=== PATIENT | male | born 1940 | race Caucasian/White ===

== ENCOUNTER 2018-11-26 08:41 | Emergency (ER) | payer MEDICARE ==
[2018-11-26] MEDS ORDERED: SODIUM CHLORIDE 0.9% 1,000 ML IV STA (09:02)
--- NOTE | 2018-11-26 09:05 | ED ---
General Adult HPI - General Chief complaint: Weakness Stated complaint: weakness Time Seen by Provider: 11/26/18 08:50 Source: patient, family, RN notes reviewed Mode of arrival: ambulatory Limitations: no limitations - History of Present Illness Initial comments: Patient is a pleasant 78-year-old male presenting to the emergency department with family with generalized weakness. Symptoms have been occurring for over the past week or more. Patient feels somewhat weak all over. Patient feels fatigued. Patient is sleeping more than normal. Patient has occasional mild cough. Patient states his urine has appeared more dark recently. Patient is e ating and drinking. No isolated area of weakness. Patient is able to take care of himself and get around the house without difficulty. Patient states occasionally at night he does feel somewhat confused. Wakes up in the middle the night. Patient states this is well he is looking at the clock. Patient states this has occurred for weeks. - Related Data Home Medications Medication Instructions Recorded Confirmed Aspirin EC [Ecotrin Low Dose] 81 mg PO DAILY 11/26/18 11/26/18 Azelastine HCl [Optivar 0.05% 1 drop BOTH EYES BID 11/26/18 11/26/18 [facility]] Cholecalciferol [Vitamin D3 (25 1,000 unit PO DAILY 11/26/18 11/26/18 Mcg = 1000 Iu)] Cyanocobalamin (Vitamin B-12) 1,000 mcg PO DAILY 11/26/18 11/26/18 [Vitamin B-12] Lisinopril [Zestril] 10 mg PO DAILY 11/26/18 11/26/18 Loratadine [Claritin] 10 mg PO DAILY 11/26/18 11/26/18 Ranitidine HCl [Zantac] 150 mg PO BID 11/26/18 11/26/18 Travoprost [Travatan Z 0.004%] 1 drop BOTH EYES HS 11/26/18 11/26/18 Allergies Allergy/AdvReac Type Severity Reaction Status Date / Time No Known Allergies Allergy Verified 11/26/18 09:24 Review of Systems ROS Statement: Those systems with pertinent positive or pertinent negative responses have been documented in the HPI. ROS Other: All systems not noted in ROS Statement are negative. Constitutional: Denies: fever Eyes: Denies: eye pain ENT: Denies: ear pain Respiratory: Reports: cough Cardiovascular: Denies: chest pain Endocrine: Reports: fatigue Gastrointestinal: Denies: abdominal pain Genitourinary: Denies: dysuria Musculoskeletal: Denies: back pain Skin: Denies: rash Neurological: Reports: as per HPI. Denies: headache Past Medical History Past Medical History: Hyperlipidemia, Hypertension History of Any Multi-Drug Resistant Organisms: None Reported Past Surgical History: Appendectomy, Cholecystectomy Past Psychological History: No Psychological Hx Reported Smoking Status: Former smoker Past Alcohol Use History: None Reported Past Drug Use History: None Reported General Exam Limitations: no limitations General appearance: alert, in no apparent distress Head exam: Present: atraumatic, normocephalic Eye exam: Present: normal appearance, PERRL, EOMI. Absent: nystagmus ENT exam: Present: normal oropharynx Neck exam: Present: normal inspection Respiratory exam: Present: normal lung sounds bilaterally Cardiovascular Exam: Present: regular rate, normal rhythm GI/Abdominal exam: Present: soft. Absent: tenderness Extremities exam: Present: normal inspection. Absent: pedal edema, calf tenderness Neurological exam: Present: alert, oriented X3, CN II-XII intact. Absent: motor sensory deficit Expanded Patient oriented to: Present: person, place, time Speech: Present: fluid speech Cranial nerves: EOM's Intact: Normal, Facial Sensation: Normal Sensory exam: Upper Extremity Light Touch: Normal, Lower Extremity Light Touch: Normal Motor strength exam: RUE: 5, LUE: 5, RLE: 5, LLE: 5 Eye Response: (4) open spontaneously Motor Response: (6) obeys commands Verbal Response: (5) oriented Psychiatric exam: Present: normal affect, normal mood Skin exam: Present: normal color Course Vital Signs 11/26/18 11/26/18 11/26/18 08:42 09:38 10:35 Temperature 98.9 F Pulse Rate 99 84 80 Respiratory 18 16 16 Rate Blood Pressure 123/77 101/69 111/72 O2 Sat by Pulse 96 98 98 Oximetry 11/26/18 11:25 Temperature Pulse Rate 88 Respiratory 16 Rate Blood Pressure 110/73 O2 Sat by Pulse 98 Oximetry EKG Findings - EKG Comments: EKG Findings:: Normal sinus rhythm 82. IN 188. QRS 126. QT 410. QTc 479. Normal axis. Right bundle branch block. Nonspecific T waves Medical Decision Making - Medical Decision Making Patient reevaluated and resting comfortably in bed. Patient is saying to feel better after fluids. Family does have some concerns regarding fatigue however agrees that he looks better. Patient was able to get up and and really well through the department without complaints. Patient is requesting discharge home and family is comfortable with this. They were offered admission for further evaluation however would like to go home this time. Case was discussed with Dr. Robertson who stated she would keep patient for observation if family wanted however also did feel comfortable with discharge of patient was doing well. - Lab Data Result diagrams: 11/26/18 09:07 11/26/18 09:07 Lab Results 11/26/18 11/26/18 11/26/18 Range/Units 09:07 09:07 09:07 WBC 16.4 H (3.8-10.6) k/uL RBC 5.23 (4.30-5.90) m/uL Hgb 14.1 (13.0-17.5) gm/dL Hct 43.0 (39.0-53.0) % MCV 82.3 (80.0-100.0) fL MCH 26.9 (25.0-35.0) pg MCHC 32.7 (31.0-37.0) g/dL RDW 13.1 (11.5-15.5) % Plt Count 511 H (150-450) k/uL Neutrophils % 84 % Lymphocytes % 5 % Monocytes % 8 % Eosinophils % 2 % Basophils % 0 % Neutrophils # 13.8 H (1.3-7.7) k/uL Lymphocytes # 0.8 L (1.0-4.8) k/uL Monocytes # 1.3 H (0-1.0) k/uL Eosinophils # 0.3 (0-0.7) k/uL Basophils # 0.1 (0-0.2) k/uL PT 10.6 (9.0-12.0) sec INR 1.0 (<1.2) APTT 25.0 (22.0-30.0) sec Sodium 132 L (137-145) mmol/L Potassium 4.8 (3.5-5.1) mmol/L Chloride 99 (98-107) mmol/L Carbon Dioxide 21 L (22-30) mmol/L Anion Gap 12 mmol/L BUN 19 (9-20) mg/dL Creatinine 0.89 (0.66-1.25) mg/dL Est GFR (CKD-EPI)AfAm >90 (>60 ml/min/1.73 sqM) Est GFR (CKD-EPI)NonAf 82 (>60 ml/min/1.73 sqM) Glucose 120 H (74-99) mg/dL Calcium 8.8 (8.4-10.2) mg/dL Magnesium 2.2 (1.6-2.3) mg/dL Total Bilirubin 2.2 H (0.2-1.3) mg/dL AST 37 (17-59) U/L ALT 29 (21-72) U/L Alkaline Phosphatase 176 H (38-126) U/L Troponin I (0.000-0.034) ng/mL Total Protein 6.4 (6.3-8.2) g/dL Albumin 3.2 L (3.5-5.0) g/dL TSH 0.784 (0.465-4.680) mIU/L Urine Color Urine Appearance (Clear) Urine pH (5.0-8.0) Ur Specific [place] (1.001-1.035) Urine Protein (Negative) Urine Glucose (UA) (Negative) Urine Ketones (Negative) Urine Blood (Negative) Urine Nitrite (Negative) Urine Bilirubin (Negative) Urine Urobilinogen (<2.0) mg/dL Ur Leukocyte Esterase (Negative) Urine RBC (0-5) /hpf Urine WBC (0-5) /hpf Ur Squamous Epith Cells (0-4) /hpf Amorphous Sediment (None) /hpf Urine Mucus (None) /hpf 11/26/18 11/26/18 Range/Units 09:07 10:28 WBC (3.8-10.6) k/uL RBC (4.30-5.90) m/uL Hgb (13.0-17.5) gm/dL Hct (39.0-53.0) % MCV (80.0-100.0) fL MCH (25.0-35.0) pg MCHC (31.0-37.0) g/dL RDW (11.5-15.5) % Plt Count (150-450) k/uL Neutrophils % % Lymphocytes % % Monocytes % % Eosinophils % % Basophils % % Neutrophils # (1.3-7.7) k/uL Lymphocytes # (1.0-4.8) k/uL Monocytes # (0-1.0) k/uL Eosinophils # (0-0.7) k/uL Basophils # (0-0.2) k/uL PT (9.0-12.0) sec INR (<1.2) APTT (22.0-30.0) sec Sodium (137-145) mmol/L Potassium (3.5-5.1) mmol/L Chloride (98-107) mmol/L Carbon Dioxide (22-30) mmol/L Anion Gap mmol/L BUN (9-20) mg/dL Creatinine (0.66-1.25) mg/dL Est GFR (CKD-EPI)AfAm (>60 ml/min/1.73 sqM) Est GFR (CKD-EPI)NonAf (>60 ml/min/1.73 sqM) Glucose (74-99) mg/dL Calcium (8.4-10.2) mg/dL Magnesium (1.6-2.3) mg/dL Total Bilirubin (0.2-1.3) mg/dL AST (17-59) U/L ALT (21-72) U/L Alkaline Phosphatase (38-126) U/L Troponin I <0.012 (0.000-0.034) ng/mL Total Protein (6.3-8.2) g/dL Albumin (3.5-5.0) g/dL TSH (0.465-4.680) mIU/L Urine Color [place] Urine Appearance Clear (Clear) Urine pH 6.0 (5.0-8.0) Ur Specific [place] 1.020 (1.001-1.035) Urine Protein 1+ H (Negative) Urine Glucose (UA) Negative (Negative) Urine Ketones 1+ H (Negative) Urine Blood Trace H (Negative) Urine Nitrite Negative (Negative) Urine Bilirubin 1+ H (Negative) Urine Urobilinogen >12.0 (<2.0) mg/dL Ur Leukocyte Esterase Negative (Negative) Urine RBC 3 (0-5) /hpf Urine WBC 4 (0-5) /hpf Ur Squamous Epith Cells <1 (0-4) /hpf Amorphous Sediment Occasional H (None) /hpf Urine Mucus Moderate H (None) /hpf - Radiology Data Radiology results: report reviewed (Computed tomography scan the brain reveals no acute process. Atrophy.), image reviewed (Chest x-ray reveals no acute process) Disposition Clinical Impression: Fatigue Disposition: HOME SELF-CARE Condition: Stable Instructions (If sedation given, give patient instructions): Fatigue (ED) Additional Instructions: Please do follow-up with primary care physician in the next day or 2 for recheck. Return for weakness, confusion, speech problems, worsening symptoms, fevers, or other concerns. Is patient prescribed a controlled substance at d/c from ED?: No Referrals: Cassia Baptiste MD [Primary Care Provider] - 1-2 days Time of Disposition: 13:06
[2018-11-26 09:37] LABS: ALT 29 U/L (21-72); AST 37 U/L (17-59); African American GFR (CKD) >90 (>60 ml/min/1.73 sqM); Albumin 3.2 g/dL (3.5-5.0); Alkaline Phosphatase 176 U/L (38-126); Anion Gap 12 mmol/L; Blood Urea Nitrogen 19 mg/dL (9-20); Calcium 8.8 mg/dL (8.4-10.2); Carbon Dioxide 21 mmol/L (22-30); Chloride 99 mmol/L (98-107); Glucose 120 mg/dL (74-99); Magnesium 2.2 mg/dL (1.6-2.3); Potassium 4.8 mmol/L (3.5-5.1); Sodium 132 mmol/L (137-145); Total Bilirubin 2.2 mg/dL (0.2-1.3); Total Protein 6.4 g/dL (6.3-8.2)
[2018-11-26 09:39] VITALS: RESP 16
[2018-11-26 09:40] LABS: Prothrombin Time 10.6 sec (9.0-12.0)
[2018-11-26 09:47] LABS: Basophils # (A) 0.1 k/uL (0-0.2); Basophils % (A) 0 %; Eosinophils # (A) 0.3 k/uL (0-0.7); Eosinophils % (A) 2 %; HGB 14.1 gm/dL (13.0-17.5); Lymphocytes # (A) 0.8 k/uL (1.0-4.8); Lymphocytes % (A) 5 %; MCH 26.9 pg (25.0-35.0); MCHC 32.7 g/dL (31.0-37.0); MCV 82.3 fL (80.0-100.0); Monocytes # (A) 1.3 k/uL (0-1.0); Monocytes % (A) 8 %; Neutrophils # (A) 13.8 k/uL (1.3-7.7); Neutrophils % (A) 84 %; Platelet Count 511 k/uL (150-450); RBC 5.23 m/uL (4.30-5.90); RDW 13.1 % (11.5-15.5); WBC 16.4 k/uL (3.8-10.6)
--- NOTE | 2018-11-26 10:41 | XR ---
EXAMINATION TYPE: XR chest 2V DATE OF EXAM: 11/26/2018 COMPARISON: NONE HISTORY: Weakness TECHNIQUE: Frontal and lateral views of the chest are obtained. FINDINGS: There are overlying cardiac leads. Aorta is dense. There is no focal air space opacity, ple ural effusion, or pneumothorax seen. The cardiac silhouette size is within normal limits. The osse ous structures are intact. IMPRESSION: No acute cardiopulmonary process.
--- NOTE | 2018-11-26 10:48 | CT ---
EXAMINATION TYPE: CT brain wo con DATE OF EXAM: 11/26/2018 HISTORY: Weakness in left leg. CT DLP: 1048.6 mGycm. Automated Exposure Control for Dose Reduction was Utilized. TECHNIQUE: CT scan of the head is performed without contrast. COMPARISON: None. FINDINGS: There is no acute intracranial hemorrhage or midline shift identified. There is diffuse v entricular and sulcal prominence consistent with diffuse age-related cerebral atrophy. There is low- attenuation in the periventricular white matter consistent with chronic small vessel ischemic change. The globes are intact and the visualized sinuses are clear. IMPRESSION: No acute intracranial hemorrhage or midline shift. There is moderate diffuse age-relate d cerebral atrophy and chronic small vessel ischemic change noted.
[2018-11-26 10:53] LABS: Amorphous Sediment,Urine Occasional /hpf; Appearance,Urine Clear (Clear); Bilirubin,Urine 1+ (Negative); Blood,Urine Trace (Negative); Color,Urine Orange; Glucose,Urine (UA) Negative (Negative); Ketones,Urine 1+ (Negative); Leukocyte Esterase,Urine Negative (Negative); Mucus,Urine Moderate /hpf; Nitrite,Urine Negative (Negative); Protein,Urine 1+ (Negative); RBC,Urine 3 /hpf (0-5); Squamous Epithelial Cell,Urine <1 /hpf (0-4); Urobilinogen,Urine >12.0 mg/dL (<2.0); WBC,Urine 4 /hpf (0-5)
[2018-11-26 11:26] VITALS: PULSE 88
[2018-11-26 13:10] VITALS: BP 120/78; TEMP 98.3
== END 2018-11-26 13:20 | disposition home or self-care (01) ==
LOC: EC 08:41
DX: R53.83 Other fatigue (principal); R53.1 Weakness; I10 Essential (primary) hypertension; Z87.891 Personal history of nicotine dependence; Z79.82 Long term (current) use of aspirin; Z79.899 Other long term (current) drug therapy
CPT/HCPCS: 36415; 70450; 71046; 80053; 81001; 83735; 84443; 84484; 85025; 85610; 85730; 93005; 96360; 96361; 99285

== ENCOUNTER → 2018-12-06 | Outpatient (CLI) | payer MEDICARE ==
[2018-12-06 19:24] LABS: African American GFR (CKD) 98.5 (60.0-200.0)
== END | disposition home or self-care (01) ==
LOC: LABWHC1 11:53
PROVIDERS: ATTEND Family Medicine
DX: R05 Cough (principal)
CPT/HCPCS: 36415; 82565; 84520

== ENCOUNTER → 2018-12-13 | Outpatient (CLI) | payer MEDICARE ==
--- NOTE | 2018-12-15 11:39 | CT ---
EXAMINATION TYPE: CT chest w con DATE OF EXAM: 12/13/2018 COMPARISON: Chest x-ray dated 11/26/2018 HISTORY: cough, congestion, fatigue, weight loss CT DLP: 550.7 mGycm. Automated Exposure Control for Dose Reduction was Utilized. TECHNIQUE: CT scan of the thorax is performed following with IV Contrast, patient injected with 100 mL of Isovue 300. FINDINGS: LUNGS: There is a solid right lower lobe 5 mm pulmonary nodule on series 4 image 33. There is a 3 mm groundglass nodule in the right middle lobe on image 44 and 3 mm solid pulmonary nodule also on image 44 within the right middle lobe. There is a 4 mm solid left lower lobe pulmonary nodule on series 4 image 35. There is minimal basilar fibrosis, subsegmental atelectasis, and very mild left basilar per ibronchial cuffing. Intrafissural lymph node is seen on image 39 measuring 4 mm an additional solid 3 mm pulmonary nodule seen within the lingula on image 36. In the anterior right upper lobe adjacent t o pulmonary vasculature there is a 5 mm pulmonary nodule that is solid in nature. 2 mm punctate subpl eural pulmonary nodule along the peripheral right upper lobe is present on image 29. Solid right basi lar millimeter pulmonary nodule is present on image 47. No focal consolidation, pleural effusion or p neumothorax. There is mild left hemidiaphragm elevation and left basilar atelectasis seen on coronal images. MEDIASTINUM: There are no greater than 1 cm hilar or mediastinal lymph nodes. No pericardial effusi on is seen. Severe three-vessel coronary artery calcifications are seen. Ascending thoracic aorta is mildly aneurysmal measuring 4.1 cm. Right and left main pulmonary arteries are enlarged and can be s een in all major arterial hypertension. OTHER: Moderate multilevel degenerative disc disease of the thoracic spine is seen. There is a 1 cm l eft renal cyst. Renal sinus cysts are also seen on the left. IMPRESSION: 1. Multiple subcentimeter pulmonary nodules measuring up to 5 mm seen bilaterally. These are indeterm inant at this time without any prior comparison for assessment of growth or stability and could repre sent metastasis or benign nodules. Follow-up would be recommended in 6-12 months given the concern fo r underlying neoplasm. 2. Mild aneurysmal dilatation of the ascending thoracic aorta measuring up to 4.1 cm. 3. Enlarged main pulmonary arteries that can be seen in pulmonary arterial hypertension. 4. Severe three-vessel coronary artery calcifications, marker of coronary artery disease.
== END | disposition home or self-care (01) ==
LOC: RADCTMAIN 16:30
PROVIDERS: ATTEND Family Medicine
DX: I71.2 Thoracic aortic aneurysm, without rupture (principal); I25.10 Atherosclerotic heart disease of native coronary artery without angina pectoris; R91.8 Other nonspecific abnormal finding of lung field; I28.8 Other diseases of pulmonary vessels; R05 Cough; R53.83 Other fatigue; D72.829 Elevated white blood cell count, unspecified; R09.89 Other specified symptoms and signs involving the circulatory and respiratory systems
CPT/HCPCS: 71260; Q9967

== ENCOUNTER → 2019-01-24 | Outpatient (CLI) | payer MEDICARE ==
[2019-01-24 13:27] LABS: African American GFR (CKD) >90 (>60 ml/min/1.73 sqM); Blood Urea Nitrogen 16 mg/dL (9-20)
--- NOTE | 2019-01-24 15:01 | CT ---
EXAMINATION TYPE: CT abdomen pelvis w con DATE OF EXAM: 01/24/2019 COMPARISON: None HISTORY: abnormal weight loss CT DLP: 1632.1 mGycm Automated exposure control for dose reduction was used. TECHNIQUE: Helical acquisition of images was performed from the lung bases through the pelvis. CONTRAST: Performed with Oral Contrast and with IV Contrast, patient injected with 100 mL of Isovue 300. FINDINGS: LUNG BASES: Strand-like bibasilar atelectasis and some linear pleural parenchymal scarring seen at th e lung bases. Probable intrafissural lymph node on the left in 3 mm nodules adjacent to one another a t the right lung base on series 4 image 4. Other nodules in the right middle lobe measuring approxima tely 4 mm each. Mild coronary artery calcifications are also evident. LIVER/GB: Hepatic parenchyma is diffusely hypoattenuated in comparison to that of the spleen, most co mmonly seen in hepatic steatosis. This finding limits evaluation for hepatic masses. No gross evidenc e of hepatic mass is seen. No intrahepatic biliary ductal dilatation. Gallbladder surgically absent. PANCREAS: There is pancreatic parenchymal atrophy. No discrete ductal dilatation. Pancreas enhances h omogeneously. SPLEEN: No significant abnormality is seen. ADRENALS: No significant abnormality is seen. KIDNEYS: There is a 1.0 cm posterior cortical left renal cyst. There are left renal sinus cysts seen on the delayed images. No suspicious renal mass. FREE AIR: No free air is visualized REPRODUCTIVE ORGANS: Resting clinic heterogenous and mildly enlarged measuring 5.1 cm in transverse d imension. URINARY BLADDER: No significant abnormality is seen. ADENOPATHY: No greater than 1 cm short axis lymph node in the abdomen or pelvis. OSSEOUS STRUCTURES: Moderate multilevel degenerative changes of the spine. Grade 1 anterolisthesis o f L4 on L5 is likely secondary to hypertrophic facet change. BOWEL: Multiple colonic diverticula without pericolic fat stranding. There is colonic spasm versus e karlie annular neoplasm or prominent haustra of the ascending colon marked on series 3 image 39 and 38 and coronal image 44. OTHER: Extensive atheromatous changes seen of the abdominal aorta with distal mild aneurysmal dilatat ion measuring 2.9 x 3.2 cm extending into the left common iliac vein that measures 1.9 cm. IMPRESSION: 1. NO CT CORRELATE FOR THE PATIENT'S STATED WEIGHT LOSS. EVALUATION OF THE BOWEL IS SOMEWHAT LIMITED GIVEN CONTRAST DOES NOT EXTEND TO THE LARGE BOWEL AND THERE IS A MODERATE DEGREE COLONIC FECAL STASIS . COLONOSCOPY COULD BE CONSIDERED THERE IS AN AREA OF LUMINAL NARROWING VERSUS SMALL ANNULAR MASS OF THE ASCENDING COLON. 2. DESCENDING AORTIC ANEURYSM MEASURING UP TO 3.2 CM, HIGHLY CALCIFIED. 3. HEPATIC STEATOSIS. 4. NONSPECIFIC PULMONARY NODULES ARE SUBCENTIMETER AT THE LUNG BASES SEEN ON THE CT OF 12/05/2018. CONSIDERATION COULD BE GIVEN TO 12 MONTH FOLLOW-UP.
== END | disposition home or self-care (01) ==
LOC: RADCTMAIN 12:07
PROVIDERS: ATTEND Internal Medicine Critical Care Medicine
DX: K76.0 Fatty (change of) liver, not elsewhere classified (principal); K59.8 Other specified functional intestinal disorders; I70.0 Atherosclerosis of aorta; I71.9 Aortic aneurysm of unspecified site, without rupture; R91.8 Other nonspecific abnormal finding of lung field
CPT/HCPCS: 82565; 84520; 74177; 36415; Q9967

== ENCOUNTER → 2019-02-14 | Outpatient (CLI) | payer MEDICARE ==
--- NOTE | 2019-02-14 13:56 | FL ---
EXAMINATION TYPE: FL barium swallow w video DATE OF EXAM: 02/14/2019 COMPARISON: NONE HISTORY: Choking and coughing TECHNIQUE: Fluoroscopy. FINDINGS: Fluoroscopic guidance was provided for the procedure performed in conjunction with the [facility] pathology department. Please see complete report forthcoming from the Speech Pathology departmen t. Various consistencies from thin liquid to solids were administered. Fluoroscopy time 3 minutes 18 seconds. Number of images: 0. There is a report of a noninversion of the epiglottis. The epiglottis appeared to improve her normall y under most circumstances. There was some intermittent partial inversion during swallowing. No aspiration or penetration was evident. There is moderate pooling within the vallecula. This was through multiple consistencies. This improve d with chin tuck method. There was normal propulsion of the bolus. IMPRESSION: 1. Intermittent incomplete inversion of the epiglottis during the exam. 2. Moderately prominent vallecular pooling present through multiple consistencies.
== END | disposition home or self-care (01) ==
LOC: RADFLMAIN 10:21
PROVIDERS: ATTEND Otolaryngology
DX: K22.8 Other specified diseases of esophagus (principal)
CPT/HCPCS: 74230

== ENCOUNTER → 2019-02-26 | Outpatient (CLI) | payer MEDICARE ==
--- NOTE | 2019-02-26 22:43 | MR ---
EXAMINATION TYPE: MR brain wo/w con DATE OF EXAM: 02/26/2019 COMPARISON: CT brain November 26, 2018 HISTORY: reduced mobility, Parkinson's tremor. TECHNIQUE: Multiplanar, multisequence images of the brain and brainstem is performed without and with IV contras t, utilizing 9.5 mL intravenous Gadavist . FINDINGS: Diffusion weighted images demonstrate no evidence of a recent infarct or other diffusion ab normality. There is no worrisome extra-axial fluid collection. There is diffuse ventricular and sulc al prominence. There are scattered foci of T2 hyperintensity seen throughout the white matter bilater ally most prominent periventricular levels. Midline structures demonstrate normal morphology. The craniocervical junction appears within normal limits. Post contrast images demonstrate no abnormal enhancement. The dural venous sinuses appear pa tent. Mild mucosal thickening involving ethmoid sinuses bilaterally and right frontal sinus. And glob es are intact bilaterally. IMPRESSION: There is mild to moderate diffuse cerebral atrophy and moderate chronic small vessel isch emic changes appreciated.
== END | disposition home or self-care (01) ==
LOC: RADMRIMAIN 06:49
PROVIDERS: ATTEND Otolaryngology
DX: Q38.8 Other congenital malformations of pharynx (principal); G31.9 Degenerative disease of nervous system, unspecified; I67.82 Cerebral ischemia; Z74.09 Other reduced mobility
CPT/HCPCS: 70553; A9585

== ENCOUNTER → 2019-04-11 | Outpatient (CLI) | payer MEDICARE ==
[2019-04-11 16:38] LABS: Protein, Total 6.4 g/dL (6.2-8.2)
[2019-04-11 16:49] LABS: C Reactive Protein <0.4 mg/dL (0.0-0.8)
[2019-04-11 16:59] LABS: Creatine Kinase 73 U/L (35-257)
[2019-04-11 19:05] LABS: Hemoglobin A1C 5.9 % (4.0-6.0)
[2019-04-14 14:14] LABS: Albumin 3.62 g/dL (3.80-4.90); Gamma Globulin 0.81 g/dL (0.70-1.50)
== END | disposition home or self-care (01) ==
LOC: LABWHC1 07:32
PROVIDERS: ATTEND Psychiatry & Neurology Neurology
DX: G62.9 Polyneuropathy, unspecified (principal); R26.89 Other abnormalities of gait and mobility
CPT/HCPCS: 36415; 82550; 82607; 82747; 83036; 84165; 84207; 85652; 86038; 86140; 86235; 86618

== ENCOUNTER → 2019-06-19 | Outpatient (CLI) | payer MEDICARE ==
--- NOTE | 2019-06-19 11:57 | CT ---
EXAMINATION TYPE: CT chest w con DATE OF EXAM: 06/19/2019 COMPARISON: 12/05/2018 HISTORY: 79-year-old male follow-up Pulmonary nodule TECHNIQUE: Contiguous axial scanning of the chest after the administration of 100 mL of Isovue 300. Coronal/sagittal reconstructions performed. CT DLP: 461.6mGycm. Automatic exposure control utilized for a dose reduction. FINDINGS: Heart normal size without pericardial effusion. Aortic valvular calcifications are present along with three-vessel coronary artery calcifications. Ectatic ascending aorta at 3.9 cm, previously measuring 4.0 cm. Mild atherosclerotic arch calcificati ons with conventional arch vessel branching anatomy. Redemonstrated large caliber to the main right and left pulmonary arteries at 3.2 cm each suggesting underlying pulmonary artery hypertension. No thoracic lymphadenopathy by CT size criteria. Mild emphysematous changes. 5 mm right lower lobe pulmonary nodule, axial image 35, unchanged. Stable 4 mm right upper lobe pulmonary nodule, axial image 18. A few scattered 4 mm and smaller subpleural pulmonary nodules right upper lobe, unchanged. 4 mm anterior left midlung pulmonary nodule, axial image 32 is unchanged. Stable 5 mm calcified granuloma anterior right midlung, axial image 29. 4 mm anterior right midlung pulmonary nodule, axial image 39 is new from prior exam. Strandy atelectasis and scarring at the left base redemonstrated. Visualized upper abdomen shows postcholecystectomy change and stable 1.2 cm cortical cyst posterior l eft kidney. Bones: Degenerative changes at the shoulders. Moderate degenerative disc disease and endplate spondyl osis throughout the thoracic spine. IMPRESSION: 1. COPD with mild emphysema. Pulmonary arterial hypertension. CAD. 2. A new 4 mm anterior right midlung pulmonary nodule, axial image 39. Continued six-month follow-up is recommended. 3. Otherwise, the other scattered 5 mm and smaller pulmonary nodules are unchanged for 6 months. Thes e can be reassessed at the follow-up to ensure more long-term stability.
== END | disposition home or self-care (01) ==
LOC: RADCTMAIN 09:47
PROVIDERS: ATTEND Internal Medicine Critical Care Medicine
DX: J43.9 Emphysema, unspecified (principal); I27.21 Secondary pulmonary arterial hypertension; I25.10 Atherosclerotic heart disease of native coronary artery without angina pectoris; R91.8 Other nonspecific abnormal finding of lung field
CPT/HCPCS: 82565; 84520; 71260; 36415; Q9967

== ENCOUNTER 2019-10-20 14:31 | Emergency (ER) | payer MEDICARE ==
--- NOTE | 2019-10-20 16:21 | XR ---
EXAMINATION TYPE: XR shoulder complete LT DATE OF EXAM: 10/20/2019 CLINICAL HISTORY: pain COMPARISON: NONE TECHNIQUE: Three views of the left shoulder are obtained. FINDINGS: There is no acute fracture/dislocation evident. The acromioclavicular and glenohumeral robert int spaces appear severely narrowed. Glenohumeral and AC joint arthropathy. Severe narrowing subacro mial joint space may reflect chronic rotator cuff tear. The visualized ribs are intact and unremarkab le. IMPRESSION: 1. There is no acute fracture or dislocation. ICD 10 NO FRACTURE, INITIAL EVALUATION
--- NOTE | 2019-10-20 16:38 | ED ---
General Adult HPI - General Chief complaint: Skin/Abscess/Foreign Body Stated complaint: lump on shoulder Time Seen by Provider: 10/20/19 14:35 Source: patient Mode of arrival: ambulatory Limitations: physical limitation - History of Present Illness Initial comments: The patient is an 79-year-old male with past history of hyperlipidemia and hypertension who presents to emergency room with reported nodule over his left before meals joint. Patient states that he has a history of rotator cuff injury. He had previously reprepared approximately 25 years ago. States that he reinjured it several years ago however had a to forego surgery a second time. States that he has good range of motion in the shoulder however over the past couple of days he has been doing a lot of physical activity outside. States chopping wood. The other day he was interesting in the bathroom when he noted a large nodule over the distal edge of his left clavicle. States that it is mildly tender to touch. Appears it is enlarging in size. No surrounding redness. Denies any weakness in the extremity or any loss of range of motion. Denies any fevers or chills. No additional palpable masses. There are no other alleviating, precipitating or modifying factors - Related Data Home Medications Medication Instructions Recorded Confirmed Aspirin EC [Ecotrin Low Dose] 81 mg PO DAILY 11/26/18 11/26/18 Azelastine HCl [Optivar 0.05% 1 drop BOTH EYES BID 11/26/18 11/26/18 Ophth Soln] Cholecalciferol [Vitamin D3 (25 1,000 unit PO DAILY 11/26/18 11/26/18 Mcg = 1000 Iu)] Cyanocobalamin (Vitamin B-12) 1,000 mcg PO DAILY 11/26/18 11/26/18 [Vitamin B-12] Lisinopril [Zestril] 10 mg PO DAILY 11/26/18 11/26/18 Loratadine [Claritin] 10 mg PO DAILY 11/26/18 11/26/18 Ranitidine HCl [Zantac] 150 mg PO BID 11/26/18 11/26/18 Travoprost [Travatan Z 0.004%] 1 drop BOTH EYES HS 11/26/18 11/26/18 Allergies Allergy/AdvReac Type Severity Reaction Status Date / Time No Known Allergies Allergy Verified 10/20/19 14:38 Review of Systems ROS Statement: Those systems with pertinent positive or pertinent negative responses have been documented in the HPI. ROS Other: All systems not noted in ROS Statement are negative. Past Medical History Past Medical History: Hyperlipidemia, Hypertension History of Any Multi-Drug Resistant Organisms: None Reported Past Surgical History: Appendectomy, Cholecystectomy Past Psychological History: No Psychological Hx Reported Smoking Status: Former smoker Past Alcohol Use History: None Reported Past Drug Use History: None Reported General Exam Limitations: physical limitation General appearance: alert, in no apparent distress Neck exam: Present: normal inspection. Absent: tenderness, meningismus, lymphadenopathy Respiratory exam: Present: normal lung sounds bilaterally, other (palpable soft tissue nodule over the left AC joint. Nodule is mobile. No overlying ecchymosis. Nodule is minimally tender to palpation. ). Absent: respiratory distress, wheezes, rales, rhonchi, stridor Cardiovascular Exam: Present: regular rate, normal rhythm, normal heart sounds. Absent: systolic murmur, diastolic murmur, rubs, gallop, clicks Extremities exam: Present: normal inspection, full ROM, normal capillary refill. Absent: tenderness, pedal edema, joint swelling, calf tenderness Course Vital Signs 10/20/19 10/20/19 14:34 16:45 Temperature 98.0 F 97.9 F Pulse Rate 65 59 L Respiratory 20 17 Rate Blood Pressure 147/75 128/89 O2 Sat by Pulse 99 99 Oximetry Medical Decision Making - Medical Decision Making Upon arrival the patient is placed in room 20. A thorough history and physical exam was performed. The patient was sent for an x-ray of his left shoulder which does demonstrate no acute fracture dislocation. Before meals and glenohumeral joint spaces severely narrowed. Glenohumeral and before meals joint arthropathy. Severe narrowing subacromial joint space may reflect chronic rotator cuff tear. I did do a bedside ultrasound of the patient's soft tissue mass which has demonstrated loculations. I discussed the diagnosis, differential and treatment options. I did recommend that the patient be discharged home with follow-up with surgery for possible biopsy versus surgical excision. There does not demonstrate any overlying signs of cellulitis the patient has no additional soft tissue masses. The patient has any new or worsening symptoms he should return to the emergency room. He was given follow- up information for Dr. Rosales's office. Patient understood this and is discha rged home in stable condition Disposition Clinical Impression: Soft tissue mass, AC joint arthropathy Disposition: HOME SELF-CARE Condition: Stable Instructions (If sedation given, give patient instructions): Soft Tissue Mass (ED) Additional Instructions: Please follow-up with Dr. Solo in regards to your soft tissue tumor. He may recommend biopsy or removal. Return to the emergency room for any new or worsening symptoms Is patient prescribed a controlled substance at d/c from ED?: No Referrals: Ivan Hilliard [Primary Care Provider] - 1-2 days Oniel Solo MD [STAFF PHYSICIAN] - 1-2 days Time of Disposition: 16:38
[2019-10-20 16:48] VITALS: BP 128/89; PULSE 59; RESP 17; TEMP 97.9
== END 2019-10-20 16:45 | disposition home or self-care (01) ==
LOC: EC 14:31
DX: M19.012 Primary osteoarthritis, left shoulder (principal); R22.2 Localized swelling, mass and lump, trunk; M25.812 Other specified joint disorders, left shoulder; I10 Essential (primary) hypertension; Z79.82 Long term (current) use of aspirin; Z79.899 Other long term (current) drug therapy; Z87.891 Personal history of nicotine dependence
CPT/HCPCS: 99284

== ENCOUNTER → 2019-12-31 | Outpatient (CLI) | payer MEDICARE ==
--- NOTE | 2019-12-31 14:43 | CT ---
EXAMINATION TYPE: CT chest w con DATE OF EXAM: 12/31/2019 COMPARISON: Prior CT chest 06/19/2019 HISTORY: previous abn exam, lung nodules CT DLP: 441.7 mGycm Automated exposure control for dose reduction was used. CONTRAST: CT scan of the chest is performed with IV Contrast, patient injected with 100 mL of Isovue 300. FINDINGS: LUNGS: The bilateral lung nodules are stable. There is no pleural effusion or pneumothorax seen. The tracheobronchial tree is patent. MEDIASTINUM: There are no greater than 1 cm hilar or mediastinal lymph nodes. No pericardial effusi on is seen. Prominence of pulmonary artery may be due to pulmonary artery hypertension. There are co ronary artery calcifications. 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 OTHER: Patient is post cholecystectomy. IMPRESSION: Lung findings are likely benign. Suspect old granulomatous disease. Correlate for pulmon mervin artery hypertension.
== END | disposition home or self-care (01) ==
LOC: RADCTMAIN 10:59
PROVIDERS: ATTEND Internal Medicine Critical Care Medicine
DX: R91.8 Other nonspecific abnormal finding of lung field (principal)
CPT/HCPCS: 82565; 84520; 71260; 36415; Q9967

== ENCOUNTER → 2020-02-26 | Outpatient (CLI) | payer MEDICARE ==
--- NOTE | 2020-02-26 13:31 | US ---
EXAMINATION TYPE: US bladder DATE OF EXAM: 02/26/2020 COMPARISON: NONE CLINICAL HISTORY: R35.0 urinary frequency. Post void residual. EXAM MEASUREMENTS: Post Void Residual Volume: 85.1 mL Color Doppler performed to assess ureteral jets. Bilateral Jets not seen Normal Post Void Residual (less than 50ml): ABNORMAL IMPRESSION: No distinct abnormality seen.
[2020-02-26 13:47] LABS: Appearance,Urine Clear (Clear); Bilirubin,Urine Negative (Negative); Blood,Urine Negative (Negative); Color,Urine Yellow; Glucose,Urine (UA) Negative (Negative); Ketones,Urine Negative (Negative); Leukocyte Esterase,Urine Negative (Negative); Nitrite,Urine Negative (Negative); PH, Urine 6.5 (5.0-8.0); Protein,Urine Negative (Negative); Specific Gravity,Urine 1.009 (1.001-1.035); Urobilinogen,Urine <2.0 mg/dL (<2.0)
[2020-02-26 19:01] LABS: Prostate Specific Antigen 4.4 ng/mL (0.0-6.5)
== END | disposition home or self-care (01) ==
LOC: LABWHC1 11:52
PROVIDERS: ATTEND Psychiatry & Neurology Neurology
DX: R35.0 Frequency of micturition (principal); G70.00 Myasthenia gravis without (acute) exacerbation
CPT/HCPCS: 36415; 76857; 81003; 82550; 84153

== ENCOUNTER → 2020-10-11 | Outpatient (CLI) | payer MEDICARE | END | disposition home or self-care (01) | LOC: LABWHC1 10:22 | PROVIDERS: ATTEND Psychiatry & Neurology Neurology | DX: R41.3 Other amnesia (principal); Z79.899 Other long term (current) drug therapy | CPT/HCPCS: 36415; 82306; 82607; 84439; 84443 ==

== ENCOUNTER → 2020-11-26 | Outpatient (CLI) | payer MEDICARE ==
--- NOTE | 2020-11-26 13:27 | CT ---
EXAMINATION TYPE: CT chest w con DATE OF EXAM: 11/26/2020 COMPARISON: 12/31/2019, 12/13/2018 HISTORY: Previous abnormal exam. CT DLP: 629 mGycm, Automated exposure control for dose reduction was used. CONTRAST: Performed injected with 100 mL of Isovue M300. TECHNIQUE: Axial images were obtained at 5 mm thick sections. Reconstructed images are reviewed on [employer] computer in the coronal plane. FINDINGS: Portion of the thyroid visualized is normal. Emphysematous changes are present. There is a 0.7 cm nodule within the posterior lateral right midlung. Series 3 image 34. There is a 0. 4 cm nodule within the anterolateral left lung. Series 4 image 33. No enlarged mediastinal or hilar adenopathy is evident. The ascending aorta diameter at the level o f the main pulmonary artery is 4.1 cm. The main pulmonary artery diameter at the bifurcation is 2.9 cm. Coronary calcification is present. Limited CT sections are obtained through the upper abdomen. Abdomen is essentially unremarkable. IMPRESSIONS: 1. Benign stable lung nodules. 2. No suspicious interval change
== END | disposition home or self-care (01) ==
LOC: RADCTMAIN 10:55
PROVIDERS: ATTEND Internal Medicine Critical Care Medicine
DX: R91.8 Other nonspecific abnormal finding of lung field (principal)
CPT/HCPCS: 82565; 84520; 71260; 36415; Q9967

== ENCOUNTER → 2021-05-27 | Outpatient (CLI) | payer MEDICARE ==
[2021-05-27 10:59] LABS: Basophils # (A) 0.04 X 10*3/uL (0.00-0.10); Basophils % (A) 0.6 %; Eosinophils # (A) 0.25 X 10*3/uL (0.04-0.35); Eosinophils % (A) 3.5 %; HCT 39.4 % (39.6-50.0); HGB 12.1 g/dL (13.0-17.0); Lymphocytes # (A) 2.28 X 10*3/uL (0.90-5.00); MCH 25.5 pg (27.0-32.0); MCHC 30.7 g/dL (32.0-37.0); MCV 83.1 fL (80.0-97.0); Monocytes # (A) 0.74 X 10*3/uL (0.20-1.00); Monocytes % (A) 10.4 %; Neutrophils % (A) 53.2 %; Platelet Count 255 X 10*3/uL (140-440); RBC 4.74 X 10*6/uL (4.40-5.60); RDW 13.9 % (11.5-14.5); WBC 7.13 X 10*3/uL (4.50-10.00)
[2021-05-27 12:19] LABS: ALT 20 U/L (10-49); AST 23 U/L (14-35); African American GFR (CKD) 72.1 (60.0-200.0); Albumin 4.3 g/dL (3.8-4.9); Albumin/Globulin Ratio 1.79 (1.60-3.17); Alkaline Phosphatase 95 U/L (41-126); BUN/Creat Ratio 16.64 Ratio (12.00-20.00); Blood Urea Nitrogen 18.3 mg/dL (9.0-27.0); Calcium 9.4 mg/dL (8.7-10.3); Carbon Dioxide 24.5 mmol/L (20.0-27.5); Chloride 104 mmol/L (96-109); Globulin 2.4 g/dL (1.6-3.3); Glucose 104 mg/dL (70-110); LDL Cholesterol,Calculated 44.6 mg/dL (0.0-131.0); Non-African American GFR(CKD) 62.2 (60.0-200.0); Potassium 4.4 mmol/L (3.5-5.5); Sodium 140 mmol/L (135-145); Total Protein 6.7 g/dL (6.2-8.2)
== END | disposition home or self-care (01) ==
LOC: LABWHC1 07:55
PROVIDERS: ATTEND Internal Medicine Critical Care Medicine
DX: I10 Essential (primary) hypertension (principal); E78.2 Mixed hyperlipidemia; N40.0 Benign prostatic hyperplasia without lower urinary tract symptoms; G70.00 Myasthenia gravis without (acute) exacerbation; R53.83 Other fatigue
CPT/HCPCS: 84439; 80061; 80053; 84443; 85025; 82306; 83036; 36415; G0103

== ENCOUNTER 2021-11-09 11:01 | Emergency (ER) | payer MEDICARE ==
[2021-11-09 11:36] VITALS: BP 145/83; PULSE 50; RESP 16; TEMP 98.2
--- NOTE | 2021-11-09 13:14 | XR ---
EXAMINATION TYPE: XR chest 2V DATE OF EXAM: 11/09/2021 COMPARISON: 11/26/2018 INDICATION: Cough upper respiratory tract infection TECHNIQUE: Frontal and lateral views of the chest are obtained. FINDINGS: The heart size is normal. The pulmonary vasculature is normal. No suspicious infiltrates are present.. IMPRESSION: 1. No acute pulmonary process.
--- NOTE | 2021-11-09 13:55 | ED ---
General Adult HPI - General Chief complaint: Upper Respiratory Infection Stated complaint: bronchitis Time Seen by Provider: 11/09/21 13:07 Source: patient, RN notes reviewed, old records reviewed Mode of arrival: ambulatory Limitations: no limitations - History of Present Illness Initial comments: Patient is a 81-year-old male with past medical history remarkable for hypertension, hyperlipidemia presents with his over concern for bronchitis. Was diagnosed by Dr. Iglesias outpatient with bronchitis. Is still on antibiotics, azithromycin for it. States he is continuing to have a productive cough of uncolored mucus. States that occasionally he gets in coughing fits which prevents him from eating and sleeping well. Presents over concern for his symptoms. Like to be reevaluated. Did not obtain a chest x-ray earlier in the week. Denies any chest pain, shortness of breath, abdominal pain, nausea, vomiting. No other acute complaints at this time. His has similar symptoms.Denies history of seasonal ALLERGIES. States nasal congestion is improving. Denies sore throat. Was vaccinated for COVID-19 and flu.Symptoms have been ongoing for 5-7 days. - Related Data Home Medications Medication Instructions Recorded Confirmed Aspirin EC [Ecotrin Low Dose] 81 mg PO DAILY 11/26/18 11/26/18 Azelastine HCl [Optivar 0.05% 1 drop BOTH EYES BID 11/26/18 11/26/18 Ophjustin Albrecht] Cholecalciferol [Vitamin D3 (25 1,000 unit PO DAILY 11/26/18 11/26/18 Mcg = 1000 Iu)] Cyanocobalamin (Vitamin B-12) 1,000 mcg PO DAILY 11/26/18 11/26/18 [Vitamin B-12] Loratadine [Claritin] 10 mg PO DAILY 11/26/18 11/26/18 Ranitidine HCl [Zantac] 150 mg PO BID 11/26/18 11/26/18 Travoprost [Travatan Z 0.004%] 1 drop BOTH EYES HS 11/26/18 11/26/18 lisinopriL [Zestril] 10 mg PO DAILY 11/26/18 11/26/18 Allergies Allergy/AdvReac Type Severity Reaction Status Date / Time No Known Allergies Allergy Verified 10/20/19 14:38 Review of Systems ROS Statement: Those systems with pertinent positive or pertinent negative responses have been documented in the HPI. Review of Systems: CONST: Denies fever EYES: Denies blurry vision ENT: Denies nasal congestion C/V: Denies Chest pain RESP: Endorses cough GI: Denies abdominal pain : Denies dysuria SKIN: Denies rash. MSK: Denies joint pain. NEURO: Denies headache ROS Other: All systems not noted in ROS Statement are negative. Past Medical History Past Medical History: Hyperlipidemia, Hypertension History of Any Multi-Drug Resistant Organisms: None Reported Past Surgical History: Appendectomy, Cholecystectomy Past Psychological History: No Psychological Hx Reported Smoking Status: Former smoker Past Alcohol Use History: None Reported Past Drug Use History: None Reported General Exam - General Exam Comments Initial Comments: General: Appears in no acute distress. HEAD: Normal with no signs of head trauma. EYES: PERRLA, EOMI, conjunctiva normal, no discharge. ENT: Hearing grossly intact, normal oropharynx. RESPIRATORY: Clear breath sounds bilaterally. No wheezes, rales, or rhonchi. No respiratory distress. No hypoxia. C/V: Regular rate and rhythm. S1 and S2 auscultated, no edema, peripheral pulses 2+ and intact throughout ABD: Abd is soft, nontender, nondistended EXT: Normal range of motion, no obvious deformity SKIN: No rashes or lesions observed on exposed skin. NEURO: Alert and oriented 4. Limitations: no limitations Course Vital Signs 11/09/21 11:29 Temperature 98.2 F Pulse Rate 50 L Respiratory 16 Rate Blood Pressure 145/83 O2 Sat by Pulse 96 Oximetry Medical Decision Making - Medical Decision Making Based on the patient's presentation and physical exam, do believe he is experiencing acute bronchitis. Chest x-ray and COVID-19 swab were obtained in triage. Chest x-ray showed no acute cardio pulmonary process. Covid swab is negative. I did discuss with him that I believe he is likely still experiencing his acute bronchitis and he continues [id number] decongestions as well as antitussive medication. He was in agreement this plan. He is concerned as he is sitting family soon for their anniversary wanted to make sure he was more sick. I recommended she continue his antibiotics and follow-up with his PCP as needed. I instructed the patient to follow up with their PCP in the next 3 days. I explained that the patient should return to the emergency department if they experience any worsening symptoms. Strict return precautions were discussed with the patient. The patient expressed understanding of these instructions. I answered all questions that the patient had. The patient was discharged home in good condition with their prescriptions and follow up information. - Lab Data Lab Results 11/09/21 Range/Units 11:42 Coronavirus (PCR) Not Detected (Not Detectd) Disposition Clinical Impression: Acute bronchitis Disposition: HOME SELF-CARE Condition: Good Instructions (If sedation given, give patient instructions): Upper Respiratory Infection (ED), Acute Bronchitis (ED) Is patient prescribed a controlled substance at d/c from ED?: No Referrals: Servando Iglesias DO [Primary Care Provider] - 1-2 days Time of Disposition: 13:45
== END 2021-11-09 14:15 | disposition home or self-care (01) ==
LOC: EC 11:01
DX: J20.9 Acute bronchitis, unspecified (principal); Z20.822 Contact with and (suspected) exposure to COVID-19; I10 Essential (primary) hypertension; E78.5 Hyperlipidemia, unspecified; Z87.891 Personal history of nicotine dependence; Z79.82 Long term (current) use of aspirin; Z79.899 Other long term (current) drug therapy
CPT/HCPCS: 71046; 87635; 99283

== ENCOUNTER → 2022-04-27 | Outpatient (CLI) | payer MEDICARE ==
[2022-04-27 14:42] LABS: Basophils # (A) 0.05 X 10*3/uL (0.00-0.10); Basophils % (A) 0.6 %; Eosinophils # (A) 0.35 X 10*3/uL (0.04-0.35); Eosinophils % (A) 4.5 %; HCT 45.1 % (39.6-50.0); HGB 14.1 g/dL (13.0-17.0); Immature Grans, Automated 0.6 %; Lymphocytes # (A) 1.87 X 10*3/uL (0.90-5.00); MCH 27.1 pg (27.0-32.0); MCHC 31.3 g/dL (32.0-37.0); MCV 86.6 fL (80.0-97.0); Mean Platelet Volume 10.1 fL (9.5-12.2); Monocytes # (A) 0.73 X 10*3/uL (0.20-1.00); Monocytes % (A) 9.4 %; NRBC Per 100 WBC 0 /100 WBCS (0.0-0.0); Neutrophils # (A) 4.75 X 10*3/uL (1.80-7.70); Neutrophils % (A) 60.9 %; Platelet Count 236 X 10*3/uL (140-440); RBC 5.21 X 10*6/uL (4.40-5.60); RDW 14.1 % (11.5-14.5)
[2022-04-27 15:35] LABS: ALT 32 U/L (10-49); AST 24 U/L (14-35); African American GFR (CKD) 72.1 (60.0-200.0); Albumin 4.3 g/dL (3.8-4.9); Albumin/Globulin Ratio 1.87 (1.60-3.17); Alkaline Phosphatase 102 U/L (41-126); BUN/Creat Ratio 20.73 Ratio (12.00-20.00); Blood Urea Nitrogen 22.8 mg/dL (9.0-27.0); Calcium 9.3 mg/dL (8.7-10.3); Carbon Dioxide 25.8 mmol/L (20.0-27.5); Chloride 103 mmol/L (96-109); Chol/HDL Ratio 2.26 Ratio; Globulin 2.3 g/dL (1.6-3.3); Glucose 106 mg/dL (70-110); LDL Cholesterol,Calculated 75.7 mg/dL (0.0-131.0); Non-African American GFR(CKD) 62.2 (60.0-200.0); Potassium 4.7 mmol/L (3.5-5.5); Sodium 139 mmol/L (135-145); Total Protein 6.6 g/dL (6.2-8.2)
== END | disposition home or self-care (01) ==
LOC: LABWHC1 07:21
PROVIDERS: ATTEND Internal Medicine Critical Care Medicine
DX: Z00.00 Encounter for general adult medical examination without abnormal findings (principal); E55.9 Vitamin D deficiency, unspecified; I10 Essential (primary) hypertension; E78.5 Hyperlipidemia, unspecified; R53.83 Other fatigue; R05.9 Cough, unspecified
CPT/HCPCS: 84439; 80061; 80053; 84443; 85025; 82306; 83036; 36415; G0103

== ENCOUNTER → 2024-11-19 | Outpatient (CLI) | payer MEDICARE ==
--- NOTE | 2024-11-22 17:54 | MR ---
EXAMINATION TYPE: MR brain wo con DATE OF EXAM: 11/19/2024 9:42 AM COMPARISON: None. CLINICAL INDICATION: Male, 84 years old with history of I63.9 CEREBRAL INFARCTION, Memory loss, falli ng TECHNIQUE: Multiplanar, multiecho imaging on a 3.0 Erika magnet is performed through the brain. Stud y is performed within 24 hours of arrival to the hospital.Multiplanar, multiecho imaging on a 3.0 Ghada la magnet is performed through the knee. IV Contrast: mL (None, if empty) FINDINGS: The craniovertebral junction is normal. The pituitary is normal. Diffusion-weighted imaging is performed. No abnormal hyperintensity is present to suggest an acute i ntracranial infarct or acute ischemic change. There are scattered punctate areas of hyperintensity on T2 and Inversion Recovery weighted sequences which are non-specific but can be related to microvascular ischemic changes. Ventricles and sulci are prominent for the patient age. IMPRESSION: 1. Atrophy with chronic appearing periventricular white matter ischemic-type changes. Follow-up MRI c an be performed as clinically indicated. 2. No acute intracranial process [facility], , 11/22/2024 5:52 PM
== END | disposition home or self-care (01) ==
LOC: RADMRIMAIN 08:45
PROVIDERS: ATTEND Psychiatry & Neurology Neurology
DX: I67.82 Cerebral ischemia (principal); I63.9 Cerebral infarction, unspecified; G31.9 Degenerative disease of nervous system, unspecified
CPT/HCPCS: 70551